=== PATIENT | female | born 1985 | race Hispanic/Latino ===

== ENCOUNTER 2016-08-31 21:08 | Inpatient (IN) | payer OTHER ==
[~2016-08-31 21:08] MED LIST: NACL 0.9% 1000 ML 1,000 ML ONE; NARCAN 2 MG/2 ML ONE; TYLENOL PR ONE
[2016-08-31] MEDS ORDERED: NACL 0.9% 1000 ML 1,000 ML IV ONE ×3 (21:12→23:04)
[2016-08-31] MEDS ORDERED: NARCAN 2 MG/2 ML IV ONE (21:31)
--- NOTE | 2016-08-31 21:32 | Emergency Department Report ---
HPI - General Time Seen by Provider: 08/31/16 21:11 - HPI HPI: This is a young adult or middle-aged female who presents to the emergency department as a possible overdose and/or altered mental status. Patient is nonverbal, nonresponsive but does thrash about on the gurney. She was dropped off by someone else and we had to assist in getting her out of the car. The independent driver said that she was going to move the car and never came back. Patient is a poor historian secondary to her current medical condition. There is suspected drug abuse. ED Past Medical Hx - Past Medical History Additional medical history: unknown - Surgical History Additional Surgical History: unknown - Social History Smoking Status: Unknown if ever smoked ED Review of Systems ROS: Stated complaint: GENERAL ILLNESS Other details as noted in HPI Comment: Unobtainable due to pts medical conditions Physical Exam - Physical Exam Vital Signs: Vital Signs 08/31/16 21:19 Temperature 105.2 F H Pulse Rate 132 H Blood Pressure 82/52 O2 Sat by Pulse 99 Oximetry Physical Exam: GENERAL: Patient is ill-appearing and altered. HEENT: Normocephalic. Atraumatic. Pupils are constricted but reactive to light. Laterally. Patient has moist mucous membranes. NECK: Supple. Trachea is midline. CHEST/LUNGS: Clear to auscultation. There is no respiratory distress noted. HEART/CARDIOVASCULAR: Regular. There is moderate tachycardia. There is no gallop rub or murmur. ABDOMEN: Abdomen is soft, nontender. Patient has normal bowel sounds. There is no abdominal distention. SKIN: Skin is hot but dry. There are some track unger seen in the antecubital fossa. There is some bleeding and a missing toenail from the right great toe. NEURO: The patient has some spontaneous eye opening but otherwise is nonverbal and nonresponsive. She goes through moments where she is thrashing about on the gurney and then sometimes will be lying still. Withdraws from painful stimuli. She does not follow any commands. MUSCULOSKELETAL: There is no tenderness or deformity. There is no limitation range of motion. Radial pulse +2 over 4 bilaterally. Cap refill less than 2 seconds. ED Course Vital Signs 08/31/16 21:19 Temperature 105.2 F H Pulse Rate 132 H Blood Pressure 82/52 O2 Sat by Pulse 99 Oximetry - Consultations Consultation #1: I called and spoke with poison control as there is concern that the patient has some type of overdose or toxidrome. On top of the current labs and imaging an EKG that has been done, they recommend iron levels, Depakote level, osmolar gap calculation, repeat metabolic panel. 09/01/16 01:36 ED Medical Decision Making - Lab Data Result diagrams: 08/31/16 21:08 08/31/16 21:08 - EKG Data -: EKG Interpreted by Me EKG shows normal: sinus rhythm (with PACs), axis, intervals, QRS complexes, ST- T waves (nonspecific ST-T changes) Rate: tachycardia (144 bpm) - EKG Data Interpretation: other (sinus tachycardia with PACs, nonspecific ST-T changes) - Radiology Data Radiology results: report reviewed, image reviewed interpreted by me: Chest x-ray did not show any acute process. Heart is normal shape and size. No effusions. No pneumothorax. No signs of pneumonia seen. CT of the head does not show any acute process including no hemorrhage, mass, shift, diffuse edema or skull fracture. Renal ultrasound bilaterally shows medical renal chronic kidney disease Right upper quadrant abdominal ultrasound shows no acute process. - Medical Decision Making This is a young female who presents to the emergency department as an altered mental status and possible overdose. At first the patient is completely unresponsive although she does have some spontaneous eye opening. She was found to have hyperthermia with a MAXIMUM TEMPERATURE of 105. She was given IV fluid, some Tylenol and some cooling blanket and most recently her temperature is down to 100.7. Patient's labs show significant abnormalities. She has a leukocytosis of 30,000, lactic acidosis, rhabdomyolysis with a CK greater than 10,000, transaminitis, renal insufficiency. A chest x-ray was done to look for signs of infection but there was no pneumonia, pleural effusions or any acute process. Due to the lab abnormalities, bilateral renal and right upper quadrant abdominal ultrasound were done. These were read by radiology as normal examinations except for the renal ultrasound shows some chronic kidney disease changes but no obstruction or hydronephrosis. CT of the head did not show any bleed, shift, mass or any acute process. She was given multiple liters of IV fluid resuscitation. Patient also had an ammonia level of about 90 so some lactulose was given. Blood cultures are sent and the patient was given some empiric Rocephin. A few hours into the patient's workup , the patient has started to become more awake and alert. She is now able to give us her name, date of and we know that she is a 31-year-old female. She still does not know what happened this evening, how she got to the hospital , and it appears that she is missing the last 48 hours. A friend is now bedside in between the 2 we know that she does have a history of methamphetamine abuse and that she may have slipped back into taking this illicit drug. However her urine drug screen is positive for amphetamine the patient also is on Vyvanse. Despite the fact that the patient is now more awake and alert, she is started to have this constant movement disorder that appears similar to a chorea or tardive dyskinesia. With all this going on, the patient will be admitted to hospital for further evaluation and treatment and has been accepted for admission by the hospitalist, Dr. Chavez. - Differential Diagnosis overdose, anticholinergic syndrome, rhabdomyolysis, CVA Critical Care Time: No Critical care attestation.: If time is entered above; I have spent that time in minutes in the direct care of this critically ill patient, excluding procedure time. ED Disposition Clinical Impression: Hyperthermia, Renal insufficiency, Transaminitis, Hyperammonemia Altered mental status Qualifiers: Altered mental status type: unspecified Qualified Code(s): R41.82 - Altered mental status, unspecified Rhabdomyolysis Qualifiers: Rhabdomyolysis type: non-traumatic Qualified Code(s): M62.82 - Rhabdomyolysis Leukocytosis Qualifiers: Leukocytosis type: unspecified Qualified Code(s): D72.829 - Elevated white blood cell count, unspecified Disposition: OP ADMITTED IP TO THIS HOSP Is pt being admited?: Yes Condition: Fair Referrals: PRIMARY CARE, [Primary Care Provider] - 3-5 Days Time of Disposition: 01:45
[2016-08-31 21:39] LABS: Hematocrit 47.5 % (30.3-42.9); Hemoglobin 15.7 gm/dl (10.1-14.3); Mean Corpuscular HGB Conc 33 % (30-34); Mean Corpuscular Hemoglobin 31 pg (28-32); Mean Corpuscular Volume 93 fl (79-97); Platelet Count 271 K/mm3 (140-440); Red Blood Count 5.09 M/mm3 (3.65-5.03)
[2016-08-31 21:41] LABS: White Blood Count 34.2 K/mm3 (4.5-11.0)
[2016-08-31 21:43] LABS: Urine Drugs of Abuse Note Disclamer
[2016-08-31 21:52] LABS: INR 1.32 (0.87-1.13)
[2016-08-31 21:53] LABS: Partial Thromboplastin Time 24.6 Sec. (24.2-36.6)
[2016-08-31 22:19] LABS: Basophils % (Manual) 0.5 % (0.0-1.8); Blastocytes % (Manual) 0 %; Eosinophils % (Manual) 0 % (0.0-4.3)
[2016-08-31 22:20] LABS: Anisocytosis 1+; Diff Status Complete
[2016-08-31 22:38] LABS: Albumin 5.5 g/dL (3.9-5); Albumin/Globulin Ratio 1.5 %; BUN/Creatinine Ratio 17.09; Bilirubin,Total 0.8 mg/dL (0.1-1.2); Calcium 10.2 mg/dL (8.4-10.2); Chloride 99.6 mmol/L (98-107); Potassium 3.7 mmol/L (3.6-5.0); Total Protein 9.2 g/dL (6.3-8.2)
--- NOTE | 2016-08-31 23:22 | XRay Report ---
FINAL REPORT EXAM: XR CHEST 1V AP HISTORY: Altered Mental Status TECHNIQUE: AP portable view(s) of the chest obtained. PRIORS: None. FINDINGS: No mediastinal shift. Cardiac silhouette is not enlarged. No pneumothorax, effusion, or focal pulmonary opacity identified. No acute skeletal findings. IMPRESSION: No acute pulmonary finding identified.
[2016-08-31] MEDS ORDERED: CEPHULAC PO ONE (23:57)
[2016-09-01] MEDS ORDERED: ROCEPHIN/NS 1 GM/50 ML 1 GM/50 ML BAG IV ONE (00:17)
--- NOTE | 2016-09-01 00:31 | Ultrasound Report ---
FINAL REPORT PROCEDURE: US RENAL BILAT TECHNIQUE: Real-time sonography in multiple planes of the kidneys, ureters and urinary bladder was performed with image documentation. CPT 78380 HISTORY: Renal failure, ANA COMPARISON: No prior studies are available for comparison. FINDINGS: RIGHT kidney: Increased cortical echotexture. No focal renal mass, calculus, or hydronephrosis. Length: 10.3 cm. LEFT kidney: Increased cortical echotexture. No focal renal mass, calculus, or hydronephrosis. Length: 10cm. Bladder: There is a Nichols catheter in the urinary bladder. There is no mass per. IMPRESSION: There are no kidney stones, cysts, masses or hydronephrosis. Cortical echotexture is increased bilaterally suggesting chronic medical renal disease..
--- NOTE | 2016-09-01 00:52 | Ultrasound Report ---
FINAL REPORT PROCEDURE: US ABDOMEN LIMITED TECHNIQUE: Real-time sonography in multiple planes of the gallbladder fossa and CBD with imaging of the adjacent liver, pancreas, and right kidney was performed with image documentation. CPT 03882 HISTORY: transaminitis COMPARISON: No prior studies are available for comparison. FINDINGS: Liver: Normal size and echotexture with no evidence of cystic or solid mass lesion. Gallbladder: Fluid filled. No gallstones, wall thickening, pericholecystic fluid, or sonographic Simon's sign . Intrahepatic bile ducts: Normal . Extrahepatic bile ducts: Normal . Pancreas: Pancreas is obscured by bowel gas.. Right kidney: Normal echotexture. No focal renal mass, calculus, or hydronephrosis. Other: No free fluid. IMPRESSION: There is no cholelithiasis, cholecystitis or biliary ductal dilatation.
--- NOTE | 2016-09-01 00:58 | Cat Scan Report ---
FINAL REPORT PROCEDURE: CT HEAD/BRAIN WO CON TECHNIQUE: Computerized tomography of the head was performed without contrast material. HISTORY: Altered Mental Status COMPARISON: No prior studies are available for comparison. FINDINGS: Skull and scalp: Normal. Paranasal sinuses: Normal. Ventricles and subarachnoid spaces: Normal. Cerebrum: No evidence of hemorrhage, acute infarction or mass . Cerebellum and brainstem: No evidence of hemorrhage, acute infarction or mass. Vasculature: Normal. Comments: None. IMPRESSION: Normal Examination
[2016-09-01] MEDS ORDERED: XANAX ONE (02:04)
[2016-09-01] MEDS ORDERED: XANAX PO ONE (02:10)
[2016-09-01] MEDS ORDERED: MILK OF MAGNESIA PO PRN (02:11)
[2016-09-01] MEDS ORDERED: DULCOLAX PR PRN (02:11)
[2016-09-01] MEDS ORDERED: ZOFRAN IV PRN (02:11)
[2016-09-01] MEDS ORDERED: TYLENOL PO PRN (02:11)
[2016-09-01] MEDS ORDERED: FLAGYL 500 MG/100 ML 500 MG/100 ML BAG IV SCH (02:15)
[2016-09-01] MEDS ORDERED: VANCOMYCIN/NS 1 GM/250 ML 1 GM/250 ML BAG IV ONE (02:18)
--- NOTE | 2016-09-01 02:19 | History and Physical Report ---
History of Present Illness Date of examination: 09/01/16 History of present illness: 31-year-old woman with history of bipolar, ADHD, chronic pain syndrome, was brought to the emergency room for altered mental status. Someone dropped her off in the emergency room. The patient was unable to recall information about herself. A friend was contacted, he stated that the patient has been missing since Wednesday. The patient does not recall what happened over the weekend. Her mental status is improving but is not back to baseline. Review of system is difficult to obtain PAST SURGICAL HISTORY: Unknown SOCIAL HISTORY: She smokes, drinks, she denies drug use FAMILY HISTORY: Hypertension Medications and Allergies Allergies Allergy/AdvReac Type Severity Reaction Status Date / Time Unable to Assess Allergy Unverified 08/31/16 21:15 Active Meds: Active Medications Acetaminophen (Tylenol) 650 mg PO Q4H PRN PRN Reason: Pain MILD(1-3)/Fever >100.5/FREEMAN Alprazolam (Xanax) 0.25 mg PO ONCE ONE Stop: 09/01/16 02:11 Last Admin: 09/01/16 02:14 Dose: 0.25 mg Bisacodyl (Dulcolax) 10 mg GA QDAY PRN PRN Reason: Constipation unrelieved by MOM Enoxaparin Sodium (Lovenox) 30 mg SUB-Q QDAY UBALDO Sodium Chloride (Nacl 0.9% 1000 Ml) 1,000 mls @ 150 mls/hr IV DIRECT UBALDO Metronidazole (Flagyl 500 Mg/100 Ml) 500 mg in 100 mls @ 100 mls/hr IV Q8HR UBALDO Magnesium Hydroxide (Milk Of Magnesia) 30 ml PO Q4H PRN PRN Reason: Constipation Ondansetron HCl (Zofran) 4 mg IV Q4H PRN PRN Reason: N/V unrelieved by Reglan Exam - Physical Exam Narrative exam: Gen. appearance: Patient lying in bed, no apparent distress HEENT: Normocephalic, atraumatic, pupils equally round and reactive to light, extraocular movement intact, and no sclericterus,. No JVD or thyromegaly or nodule,neck supple, no carotid bruit ,mucous membranes moist, no exudate or erythema Heart: S1, S2, regular rate and rhythm Lungs: Clear to auscultation bilaterally, breathing comfortable Abdomen: Positive bowel sounds, nontender, nondistended, no organomegaly Extremity: No edema, cyanosis, clubbing Skin: Track unger on the arms, No rash, nodules, warm, dry Neuro: extremely restless, Oriented to self, place, cranial nerves II-12 intact , speech is fluent, motor and sensory intact - Constitutional Vitals: Temp Pulse Resp BP Pulse Ox 105.2 F H 122 H 18 97/78 100 08/31/16 21:19 08/31/16 23:00 09/01/16 02:06 08/31/16 23:00 09/01/16 02:06 Results - Labs CBC & Chem 7: 09/02/16 07:00 09/02/16 08:33 Labs: Abnormal lab results 08/31/16 08/31/16 08/31/16 Range/Units 21:08 21:08 21:08 WBC 34.2 H (4.5-11.0) K/mm3 RBC 5.09 H (3.65-5.03) M/mm3 Hgb 15.7 H (10.1-14.3) gm/dl Hct 47.5 H (30.3-42.9) % Seg Neuts % (Manual) 74.0 H (40.0-70.0) % Lymphocytes % (Manual) 2.5 L (13.4-35.0) % Monocytes % (Manual) 11.5 H (0.0-7.3) % Seg Neutrophils # Man 25.3 H (1.8-7.7) K/mm3 Lymphocytes # (Manual) 0.9 L (1.2-5.4) K/mm3 Monocytes # (Manual) 3.9 H (0.0-0.8) K/mm3 Basophils # (Manual) 0.2 H (0.0-0.1) K/mm3 PT 16.3 H (12.2-14.9) Sec. INR 1.32 H (0.87-1.13) Carbon Dioxide 10 L (22-30) mmol/L BUN 53 H (7-17) mg/dL Creatinine 3.1 H (0.7-1.2) mg/dL Lactic Acid (0.7-2.0) mmol/L AST 243 H (5-40) units/L ALT 82 H (7-56) units/L Ammonia (25-60) umol/L Total Creatine Kinase 90855 H (30-135) units/L Total Protein 9.2 H (6.3-8.2) g/dL Albumin 5.5 H (3.9-5) g/dL TSH (0.270-4.200) mlU/mL Salicylates (2.8-20.0) mg/dL Valproic Acid (50-100) ug/mL 08/31/16 08/31/16 08/31/16 Range/Units 21:08 21:08 21:08 WBC (4.5-11.0) K/mm3 RBC (3.65-5.03) M/mm3 Hgb (10.1-14.3) gm/dl Hct (30.3-42.9) % Seg Neuts % (Manual) (40.0-70.0) % Lymphocytes % (Manual) (13.4-35.0) % Monocytes % (Manual) (0.0-7.3) % Seg Neutrophils # Man (1.8-7.7) K/mm3 Lymphocytes # (Manual) (1.2-5.4) K/mm3 Monocytes # (Manual) (0.0-0.8) K/mm3 Basophils # (Manual) (0.0-0.1) K/mm3 PT (12.2-14.9) Sec. INR (0.87-1.13) Carbon Dioxide (22-30) mmol/L BUN (7-17) mg/dL Creatinine (0.7-1.2) mg/dL Lactic Acid 2.40 H* (0.7-2.0) mmol/L AST (5-40) units/L ALT (7-56) units/L Ammonia 90.0 H (25-60) umol/L Total Creatine Kinase (30-135) units/L Total Protein (6.3-8.2) g/dL Albumin (3.9-5) g/dL TSH 6.940 H (0.270-4.200) mlU/mL Salicylates (2.8-20.0) mg/dL Valproic Acid (50-100) ug/mL 08/31/16 08/31/16 Range/Units 21:08 23:03 WBC (4.5-11.0) K/mm3 RBC (3.65-5.03) M/mm3 Hgb (10.1-14.3) gm/dl Hct (30.3-42.9) % Seg Neuts % (Manual) (40.0-70.0) % Lymphocytes % (Manual) (13.4-35.0) % Monocytes % (Manual) (0.0-7.3) % Seg Neutrophils # Man (1.8-7.7) K/mm3 Lymphocytes # (Manual) (1.2-5.4) K/mm3 Monocytes # (Manual) (0.0-0.8) K/mm3 Basophils # (Manual) (0.0-0.1) K/mm3 PT (12.2-14.9) Sec. INR (0.87-1.13) Carbon Dioxide (22-30) mmol/L BUN (7-17) mg/dL Creatinine (0.7-1.2) mg/dL Lactic Acid (0.7-2.0) mmol/L AST (5-40) units/L ALT (7-56) units/L Ammonia (25-60) umol/L Total Creatine Kinase (30-135) units/L Total Protein (6.3-8.2) g/dL Albumin (3.9-5) g/dL TSH (0.270-4.200) mlU/mL Salicylates < 0.3 L (2.8-20.0) mg/dL Valproic Acid < 2.8 L (50-100) ug/mL - Imaging and Cardiology EKG: image reviewed Chest x-ray: image reviewed CT Scan - head: report reviewed Assessment and Plan Altered mental status, ? etiology SIRS Rhabdomyolysis acute renal failure, ?acute component Elevated ammonia level Elevated TSH Admits medicine Start aggressive IV fluid, IV Zosyn, vancomycin Monitor kidney function, start lactulose, check T4 levels Start DVT prophylaxis Give a dose of xanax now, very reastless
[2016-09-01 02:47] LABS: Albumin 4.3 g/dL (3.9-5); Albumin/Globulin Ratio 1.5 %; BUN/Creatinine Ratio 19.11; Chloride 105.6 mmol/L (98-107); Potassium 3.9 mmol/L (3.6-5.0)
[2016-09-01 02:55] LABS: Calcium 8.4 mg/dL (8.4-10.2); Total Protein 7.2 g/dL (6.3-8.2)
[2016-09-01 03:01] LABS: Creatine Kinase MB 67.6 ng/mL (0.0-4.0)
--- NOTE | 2016-09-01 03:14 | Admit Criteria Form ---
Admission Criteria Documentation: FEVER Clinical Indications for Inpatient Care (Place 'X' for any and all applicable criteria): Ongoing inpatient care may be indicated for fever with ANY ONE of the following[ D] (5)(27)(28)(29)(30)(31): [ ]I. Bacteremia [ X]II. Evidence of significant systemic illness as indicated by ANY ONE of the following: [ ]a) Persistently high temperatures greater than 103.1 degrees F ( 39.5 degrees C) (oral) [ ]b) New-onset hypoxia [ ]c) Hemodynamic instability [X ]d) Mental status changes [ ]e) Decreased urine output due to developing renal insufficiency [ ]f) New focal neurologic deficit (eg, stroke) [ ]g) Seizures [ ]h) Rigors [ ]i) Dehydration or hypovolemia [ ]j) Inadequate oral intake [ ]III. Patient in the immediate postoperative period with ANY ONE of the following (E)(23)(24): [ ]a) Evidence of specific localizing infection requiring ongoing inpatient evaluation or treatment (eg,abscess, severe pneumonia, wound infection ) [ ]b) Known or suspected cause of fever requiring ongoing inpatient evaluation or treatment (eg, DVT) [ ]c) Evidence of malignant hyperthermia (eg, unexplained tachycardia and muscle rigidity after depolarizing muscular blocking agent or inhaled anesthetic agent) [ ]IV. Suspected cause requiring acute care (eg, endocarditis, meningitis) [ ]V. High suspicion of bacteremia as indicated by severe constitutional symptoms in patient at high risk as indicated by ANY ONE of the following: [ ]a) Immunocompromised state [D](22) [ ]b) Age <3 years or >65 years [ ]c) Severe comorbidities (eg, poorly controlled diabetes, severe COPD) [ ]. High suspicion for fungal infection as indicated by ANY ONE of the following (22)(25): [ ]a) Febrile neutropenia (WBC <500/mm3 (0.5 X 109/L)) for >4 days despite broad spectrum antibiotics [ ]b) Imaging findings suggestive of fungal infection [ ]c) Immunocompromised state [ ]d) Immunocompromised patient colonized with Aspergillus species [ ]VII. Evidence of infection of medical devices such as implanted catheters or exposed hardware [ ]VIII. Suspected neuroleptic malignant syndrome as evidenced by ALL of the following (15): [ ]a) Recent use of neuroleptic medication (eg, haloperidol, prochlorperazine, metoclopramide) [ ]b) New-onset muscle rigidity Extended stay beyond goal length of stay for primary condition may be needed until ALL of the following are present(16)(17)(18)(19)(20)(21): [ ]a) Temperature status acceptable as indicated by ANY ONE of the following: [ ]i) Temp <38.1C (100.5 F) (oral) [ ]ii) Temp as expected for disease process and care performable at next level of care [ ]b) Hemodynamic stability [ ]c) Cultures negative or infection identified and under adequate treatment [ ]d) Behavior or mental status abnormalities absent or manageable at lower level of care (Also use Mental Status Change Criteria Form) for further information. [ ]e) Medical comorbidities absent or manageable at a lower level of care The original [facility] [employer] [facility] [employer] content created by [facility] has been revised. The portions of the content which have been revised are identified through the use of italic text or in bold, and [facility] has neither reviewed nor approved the modified material. All other unmodified content is copyright [facility]. Please see references footnoted in the original [facility] edition 2016 Admission Criteria Met: Yes
[2016-09-01 03:24] LABS: Bilirubin,Total 0.6 mg/dL (0.1-1.2)
[2016-09-01 03:27] LABS: Bacteria,Urine 1+ /HPF (Negative); Mucus,Urine FEW /HPF
[2016-09-01 03:28] LABS: Bilirubin,Urine NEG (Negative); Blood,Urine SM (Negative); Ketones,Urine NEG (Negative); Leukocyte Esterase,Urine MOD (Negative); Nitrite,Urine NEG (Negative); Urobilinogen,Urine < 2.0 mg/dL (<2.0)
[2016-09-01] MEDS: ZOSYN/NS 2.25 GM/50ML 2.25 GM/50 ML BAG IV SCH ×3 (06:51→23:00)
[2016-09-01] MEDS: CEPHULAC PO SCH ×2 (08:35→15:00)
[2016-09-01 09:44] LABS: Creatine Kinase MB 106.5 ng/mL (0.0-4.0)
[2016-09-01] MEDS ORDERED: ROCEPHIN/NS 1 GM/50 ML 1 GM/50 ML BAG IV SCH (10:00)
[2016-09-01 10:15] LABS: Creatine Kinase 14277 units/L (30-135)
[2016-09-01] MEDS: LOVENOX SUB-Q SCH (10:33)
[2016-09-01 12:47] LABS: Hematocrit 38.3 % (30.3-42.9); Hemoglobin 12.6 gm/dl (10.1-14.3); Mean Corpuscular HGB Conc 33 % (30-34); Mean Corpuscular Hemoglobin 30 pg (28-32); Mean Corpuscular Volume 92 fl (79-97); Platelet Count 205 K/mm3 (140-440); Red Blood Count 4.18 M/mm3 (3.65-5.03); Red Cell Distribution Width 13.8 % (13.2-15.2)
[2016-09-01 13:13] LABS: White Blood Count 22.4 K/mm3 (4.5-11.0)
[2016-09-01] MEDS: PERCOCET 5/325 PO PRN (20:06)
[2016-09-01] MEDS: NACL 0.9% 1000 ML 1,000 ML IV SCH (23:00)
[2016-09-02] MEDS: PERCOCET 5/325 PO PRN ×3 (02:10→23:01)
[2016-09-02] MEDS: CEPHULAC PO SCH ×5 (08:04→23:00)
[2016-09-02] MEDS: ZOSYN/NS 2.25 GM/50ML 2.25 GM/50 ML BAG IV SCH (08:36)
[2016-09-02] MEDS: NACL 0.9% 1000 ML 1,000 ML IV SCH ×2 (08:43→15:01)
[2016-09-02 10:31] LABS: Basophils % (Auto) 0.6 % (0.0-1.8); Eosinophils % (Auto) 2.3 % (0.0-4.3); Hematocrit 33.7 % (30.3-42.9); Hemoglobin 11.3 gm/dl (10.1-14.3); Mean Corpuscular HGB Conc 34 % (30-34); Mean Corpuscular Hemoglobin 31 pg (28-32); Mean Corpuscular Volume 92 fl (79-97); Platelet Count 165 K/mm3 (140-440); Red Blood Count 3.67 M/mm3 (3.65-5.03); Red Cell Distribution Width 13.7 % (13.2-15.2); White Blood Count 10.4 K/mm3 (4.5-11.0)
[2016-09-02] MEDS: LOVENOX SUB-Q SCH (10:34)
[2016-09-02 11:00] LABS: BUN/Creatinine Ratio 26.66; Calcium 7.7 mg/dL (8.4-10.2); Chloride 107.8 mmol/L (98-107); Potassium 3.5 mmol/L (3.6-5.0)
[2016-09-02 14:44] LABS: HIV-1 Antigen p24 Non React (Non React); HIVR-1/2 Ab Non React (Non React)
[2016-09-02] MEDS: ZOSYN/NS 4.5GM/100ML 4.5 GM/100 ML VIAL IV SCH ×2 (15:02→22:59)
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
[2016-09-03] MEDS: CEPHULAC PO SCH ×4 (03:20→21:45)
[2016-09-03] MEDS ORDERED: K-DUR PO ONE (09:00)
[2016-09-03] MEDS: PERCOCET 5/325 PO PRN ×2 (09:53→19:06)
[2016-09-03 09:55] LABS: Anion Gap 15 mmol/L; BUN/Creatinine Ratio 11.42; Blood Urea Nitrogen 8 mg/dL (7-17); Calcium 7.7 mg/dL (8.4-10.2); Carbon Dioxide 21 mmol/L (22-30); Chloride 111.3 mmol/L (98-107); Glucose 94 mg/dL (65-100); Potassium 3.4 mmol/L (3.6-5.0); Sodium 144 mmol/L (137-145)
[2016-09-03] MEDS: LOVENOX SUB-Q SCH (10:03)
--- NOTE | 2016-09-03 13:16 | Progress Note ---
Subjective - Reason for Consult Consult date: 09/03/16 Reason for consult: Psychiatry Follow-up - Chief Complaint Chief complaint: "My lips are hurting" 31 year old white female seen for psychiatric evaluation on the medical floor. Today patient is irritable, but cooperative during assessment. She stated that her lips hurt (swollen on assessment). She stated that her lips started swelling "late yesterday afternoon." She answers most of my questions, but is uncomfortable at this time, because of the lips pain. She denies SI/HI's and AVH 's. Mental Status Exam - Vital signs Last Vital Signs Temp 98.2 F 09/03/16 10:10 Pulse 84 09/03/16 10:10 Resp 16 09/03/16 10:10 BP 110/63 09/03/16 10:10 Pulse Ox 97 09/03/16 10:10 - Exam Narrative exam: MSE: Appearance: cooperative, irritable Behavior: poor eye contact Speech: regular rate and tone Mood: "fill bad" Affect: flat Thought Process: circumstantial Thought Content: denies SI/HI's and AVH's Motor Activity: ambulatory Cognition: a/ox 3 Insight: limited Judgment: limited Assessment and Plan Impression: 31 year old white female seen for psychiatric evaluation on the medical floor. Today patient is irritable, but cooperative during assessment. She stated that her lips hurt (swollen on assessment). She stated that her lips started swelling "late yesterday afternoon." She answers most of my questions, but is uncomfortable at this time, because of the lips pain. Informed the charge nurse that the patient's lips are swollen and painful. She informed me that the patient left off the floor yesterday and returned complaining of lip pain. Patient stated that she have never experienced a reaction to Seroquel in the past. Latest CK 4957 trending down. Recommendation/Plan: Continue Seroquel 100 mg PO HS for mood. Will continue to follow-up with patients until discharged.
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
[2016-09-03] MEDS: ACYCLOVIR TP SCH ×3 (16:29→22:12)
[2016-09-03] MEDS: NACL 0.9% 1000 ML 1,000 ML IV SCH (22:11)
[2016-09-03] MEDS: BENADRYL IV PRN (22:12)
[2016-09-04] MEDS: CEPHULAC PO SCH ×3 (03:59→14:38)
[2016-09-04 04:22] LABS: Anion Gap 16 mmol/L; Blood Urea Nitrogen 3 mg/dL (7-17); Calcium 7.5 mg/dL (8.4-10.2); Carbon Dioxide 22 mmol/L (22-30); Chloride 108.8 mmol/L (98-107); Creatine Kinase 1318 units/L (30-135); Glucose 88 mg/dL (65-100); Potassium 3.6 mmol/L (3.6-5.0); Sodium 143 mmol/L (137-145)
[2016-09-04] MEDS: PERCOCET 5/325 PO PRN ×2 (04:59→10:49)
[2016-09-04] MEDS: BENADRYL IV PRN (04:59)
[2016-09-04] MEDS: ACYCLOVIR TP SCH ×3 (05:00→14:36)
[2016-09-04 09:45] VITALS: BP 121/65
[2016-09-04] MEDS: LOVENOX SUB-Q SCH (10:48)
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
== END 2016-09-04 18:10 | disposition home or self-care (01) | DRG 92 ==
LOC: EDBD 21:08 → ED 21:08 → 4A 09-01 02:11
PROVIDERS: ADMIT Internal Medicine; ATTEND Internal Medicine
DX: G92 Toxic encephalopathy (principal); M62.82 Rhabdomyolysis; E72.20 Disorder of urea cycle metabolism, unspecified; R65.10 Systemic inflammatory response syndrome (SIRS) of non-infectious origin without acute organ dysfunction; N17.9 Acute kidney failure, unspecified; R74.0 Nonspecific elevation of levels of transaminase and lactic acid dehydrogenase [LDH]; D72.829 Elevated white blood cell count, unspecified; F31.9 Bipolar disorder, unspecified; F90.9 Attention-deficit hyperactivity disorder, unspecified type; G89.4 Chronic pain syndrome; Z82.49 Family history of ischemic heart disease and other diseases of the circulatory system; F17.200 Nicotine dependence, unspecified, uncomplicated
CPT/HCPCS: 36415; 70450; 71010; 76705; 76770; 80048; 80053; 80074; 80164; 80307; 80320; 81001; 82140; 82550; 82553; 82962; 83540; 83930; 84436; 84443; 84484; 84703; 85007; 85025; 85027; 85610; 85730; 86592; 86850; 86900; 86901; 87040; 87591; 87806; 93005; 93010; 96361; 96374; 99406; G0480; J0696; J1200; J1650; J2310; J2543; J3370; J7030